=== PATIENT | female | born 1950 | race Caucasian/White ===

== ENCOUNTER 2017-08-27 15:42 | Inpatient (IN) | payer MEDICARE, BC ==
[2017-08-27] MEDS ORDERED: Morphine 4 MG/ML Syringe IVPUSH ONE (15:52)
[2017-08-27] MEDS ORDERED: Lactated Ringers 1,000 ML IV ONE (15:52)
[2017-08-27] MEDS ORDERED: Metoclopramide 10 MG/2 ML SDV IVPUSH ONE (15:52)
[2017-08-27] MEDS ORDERED: Metoclopramide 10 MG/2 ML SDV ONE (15:55)
[2017-08-27] MEDS ORDERED: Morphine 4 MG/ML Syringe ONE (15:56)
[2017-08-27] MEDS ORDERED: Ondansetron 4 MG/2 ML SDV ONE ×2 (16:26→17:19)
[2017-08-27] MEDS ORDERED: Morphine 2 MG/ML Syringe ONE (16:26)
[2017-08-27] MEDS ORDERED: Morphine 2 MG/ML Syringe IV ONE (16:26)
[2017-08-27] MEDS ORDERED: Ondansetron 4 MG/2 ML SDV IVPUSH ONE ×2 (16:26→17:25)
[2017-08-27] MEDS ORDERED: fentaNYL 100 MCG/2 ML SDV IVPUSH ONE (16:58)
[2017-08-27] MEDS ORDERED: fentaNYL 100 MCG/2 ML SDV ONE ×4 (16:59→21:00)
[2017-08-27] MEDS ORDERED: fentaNYL 100 MCG/2 ML SDV IV ONE ×3 (17:25→21:00)
[2017-08-27] MEDS: Lactated Ringers 1,000 ML IV SCH (19:25)
[2017-08-27] MEDS ORDERED: Lidocaine 2% Jelly 10 ML Urojet ONE ×2 (21:00→21:02)
[2017-08-27] MEDS ORDERED: Acetaminophen 650 MG Supp RECTAL PRN (21:00)
[2017-08-27] MEDS ORDERED: Ondansetron 4 MG/2 ML SDV IVPUSH PRN (21:00)
[2017-08-27] MEDS ORDERED: Naloxone 0.4 MG/ML SDV IV PRN (21:00)
[2017-08-27] MEDS ORDERED: cefTRIAXone 1 GM in Sodium Chloride 0.9% 50 ML IV ONE (21:00)
[2017-08-27] MEDS ORDERED: Bisacodyl 10 MG Supp RECTAL PRN (21:00)
[2017-08-27] MEDS ORDERED: Acetaminophen 325 MG Tab PO PRN (21:00)
[2017-08-27] MEDS ORDERED: Docusate Sodium 100 MG Cap PO PRN (21:00)
[2017-08-27] MEDS ORDERED: cefTRIAXone 1 GM Vial ONE (21:00)
[2017-08-27] MEDS ORDERED: LORazepam 2 MG/ML SDV IVPUSH PRN (21:00)
[2017-08-27] MEDS ORDERED: LORazepam 2 MG/ML SDV ONE (21:01)
[2017-08-27] MEDS ORDERED: Sodium Chloride 0.9% 50 ML ONE (21:01)
[2017-08-27] MEDS ORDERED: Pantoprazole 40 MG Vial ONE (23:03)
[2017-08-27] MEDS ORDERED: fentaNYL/Normal Saline 600 MCG/30 ML PCA Vial ONE (23:05)
[2017-08-27] MEDS: fentaNYL/Normal Saline 600 MCG/30 ML PCA Vial IV PRN (23:15)
[2017-08-27] MEDS: Pantoprazole 40 MG Vial IV SCH (23:15)
[2017-08-28] MEDS: Lactated Ringers 1,000 ML IV SCH (02:30)
[2017-08-28] MEDS ORDERED: LORazepam 2 MG/ML SDV ONE (03:27)
[2017-08-28] MEDS ORDERED: Levothyroxine 25 MCG Tab PO SCH (07:30)
--- NOTE | 2017-08-28 09:56 | PN ---
DATE OF SERVICE: 08/28/2017 SUBJECTIVE: Gladys is a 67-year-old female with a partial small bowel obstruction. She came into the emergency room yesterday, around 2100 hours. She had a sudden onset at 1300 hours of abdominal pain with nausea and vomiting. She was admitted to [address] [place] [address] with a small bowel obstruction with a consult with Surgery Team today. History of appendectomy, hysterectomy, and a hernia repair. Currently, Gladys states her pain is controlled. Vital signs have been stable. Temp max of 98.4. NG has put out 325 of a thick green drainage. Urine output 200. PAST MEDICAL HISTORY: Hypothyroidism and hypertension. MEDICATIONS: See EMR. ALLERGIES: HAS ALLERGIES TO ENVIRONMENTAL. REVIEW OF SYSTEMS: HEENT: Negative. NECK: Negative. HEART: No chest pain or shortness of breath. LUNGS: No cough. ABDOMEN: Generalized tenderness in periumbilical area, extending to the right and left mid- abdomen associated with nausea and vomiting, did have some dry heaves. : Negative. EXTREMITIES: Negative for any peripheral edema, joint pain or swelling. NEURO: No headaches, dizziness, or loss of coordination. Remainder of review of systems negative for any pertinent positives and negatives. OBJECTIVE: GENERAL: Gladys Gardner is a 67-year-old female. VITAL SIGNS: Height is 5 feet 5 inches. Weight 168 pounds. BMI is 28. TPR 98.4, 86, 18, and blood pressure 153/82. HEENT: Negative. NECK: Supple. HEART: Regular rate and rhythm. LUNGS: Clear. ABDOMEN: Slightly distended. Generalized tenderness. EXTREMITIES: SCDs are on. No peripheral edema. NEURO: Intact. PSYCHIATRIC: Mood and affect appropriate. ASSESSMENT: Partial small bowel obstruction. PLAN: 1. Schedule; have consent signed for exploratory laparotomy for release of partial small bowel obstruction with possible lysis of adhesions and possible bowel resection; general anesthesia; case to follow, 08/28/2017; Emmett Tsai MD. 2. Tap block. 3. Ketamine per protocol. 4. Cefoxitin 2 grams IV on-call to OR approximately noon. 5. Remain n.p.o. 6. We will evaluate p.r.n. or in a.m. Andree Fischer PA-C /[id number]
--- NOTE | 2017-08-28 09:56 | CR ---
Abdomen 2V AP Flat Upright INDICATION: follow up sbo COMPARISON: CT previous day FINDINGS: 3 views. NG tube in the proximal stomach. Dilated air-filled loops of small bowel with ass ociated air-fluid levels again noted as seen on CT, showing no significant interval change. Excreted contrast material in the urinary bladder.
--- NOTE | 2017-08-28 09:56 | CR ---
Abdomen 1V Upright INDICATION: CHECK NG PLACEMENT COMPARISON: None FINDINGS: Single portable view of the upper abdomen shows NG tube in the proximal stomach with proxi mal side port at the level of the GE junction.
[2017-08-28] MEDS ORDERED: Lidocaine 4% Top Soln 50 ML Bottle TOP ONE (10:30)
[2017-08-28] MEDS ORDERED: Succinylcholine 200 MG/10 ML MDV ONE (11:12)
[2017-08-28] MEDS ORDERED: Propofol 200 MG/20 ML SDV ONE (11:12)
[2017-08-28] MEDS ORDERED: Glycopyrrolate 0.2 MG/ML 5 ML MDV ONE (11:12)
[2017-08-28] MEDS ORDERED: Dexamethasone 4 MG/ML SDV ONE (11:12)
[2017-08-28] MEDS ORDERED: Ondansetron 4 MG/2 ML SDV ONE (11:12)
[2017-08-28] MEDS ORDERED: Rocuronium 50 MG/5 ML Vial ONE (11:12)
[2017-08-28] MEDS ORDERED: Midazolam 1 MG/ML 2 ML SDV ONE (11:12)
[2017-08-28] MEDS ORDERED: fentaNYL 250 MCG/5 ML SDV ONE (11:12)
[2017-08-28] MEDS ORDERED: Neostigmine Methylsulfate 1 MG/ML 5 ML Syringe ONE (11:12)
[2017-08-28] MEDS ORDERED: Meropenem 500 MG SDV ONE (11:53)
[2017-08-28] MEDS ORDERED: cefOXitin 2 GM in Sodium Chloride 0.9% 50 ML IV ONE (12:00)
[2017-08-28] MEDS ORDERED: Ketamine 500 MG/5 ML MDV IV SCH (12:00)
[2017-08-28] MEDS ORDERED: Ropivacaine 38 ML, Dexamethasone 8 MG, EPINEPHrine 0.4 MG, Sodium Chloride 0.9% 39.6 ML NERVRT SCH ×4 (12:00)
[2017-08-28] MEDS ORDERED: fentaNYL 100 MCG/2 ML SDV ONE (12:10)
[2017-08-28] MEDS ORDERED: Bupivacaine 0.5%/EPINEPHrine 1:200,000 50 ML MDV ONE (12:14)
[2017-08-28] MEDS ORDERED: Naloxone 0.4 MG/ML SDV ONE (12:33)
[2017-08-28] MEDS ORDERED: hydrOXYzine HCl 100 MG/2 ML SDV IM PRN (14:24)
[2017-08-28] MEDS: Dextrose 5%-Lactated Ringers 1,000 ML IV SCH ×2 (15:29→21:38)
[2017-08-28] MEDS: Acetaminophen 500 MG Tab PO SCH ×2 (15:30→21:17)
[2017-08-28] MEDS: cefOXitin 2 GM in Sodium Chloride 0.9% 50 ML IV SCH ×2 (16:24→23:48)
[2017-08-28] MEDS ORDERED: cefTRIAXone 1 GM in Sodium Chloride 0.9% 50 ML IV SCH (21:00)
[2017-08-28] MEDS: Docusate Sodium 100 MG Cap PO SCH (21:17)
[2017-08-28] MEDS: Pantoprazole 40 MG Vial IV SCH (21:17)
[2017-08-29] MEDS: Acetaminophen 500 MG Tab PO SCH ×4 (03:17→21:48)
[2017-08-29] MEDS: Dextrose 5%-Lactated Ringers 1,000 ML IV SCH ×2 (03:24→18:51)
[2017-08-29] MEDS: cefOXitin 2 GM in Sodium Chloride 0.9% 50 ML IV SCH ×2 (04:44→10:33)
[2017-08-29] MEDS: fentaNYL/Normal Saline 600 MCG/30 ML PCA Vial IV PRN (08:26)
[2017-08-29] MEDS: Docusate Sodium 100 MG Cap PO SCH ×2 (09:12→21:48)
--- NOTE | 2017-08-29 16:31 | PN ---
DATE OF SERVICE: 08/29/2017 SUBJECTIVE: Gladys is postop day one. She had a temp max of 100.4. Pain is controlled. Vital signs otherwise have been stable. REVIEW OF SYSTEMS: Remainder of review of systems is negative for any pertinent positives and negatives. OBJECTIVE: GENERAL: Gladys Gardner is a 67-year-old female. VITAL SIGNS: TPR is 98.2, 49, 18, blood pressure 120/65. HEENT: Negative. NECK: Supple. HEART: Regular rate and rhythm. LUNGS: Clear. ABDOMEN: Dressings dry and intact. Abdominal binder is on. EXTREMITIES: SCDs are on and there is no peripheral edema. ASSESSMENT: Exploratory laparotomy with lysis of adhesions, small bowel resection, and tube decompression of small bowel for adhesive small bowel obstruction with focal small bowel hemorrhage and marked distention of the proximal small bowel. Date of surgery, 08/28/2017, Emmett Tsai M.D. PLAN: 1. Schedule and have consent signed for delayed primary closure for 08/30/2017. TAP block and bolus of ketamine, n.p.o. after midnight. 2. Sips of clear liquids, ice chips. 3. Decrease IV to 125 mL per hour. 4. Leave Marquis in for an accurate intake and output. 5. Good pulmonary toilet. 6. We will evaluate p.r.n. or in a.m. Andree Fischer PA-C /[id number]
[2017-08-29] MEDS: Pantoprazole 40 MG Vial IV SCH (21:48)
[2017-08-30] MEDS: Dextrose 5%-Lactated Ringers 1,000 ML IV SCH ×3 (03:02→17:30)
[2017-08-30] MEDS: Acetaminophen 500 MG Tab PO SCH ×4 (03:03→22:00)
[2017-08-30] MEDS: fentaNYL/Normal Saline 600 MCG/30 ML PCA Vial IV PRN (06:28)
[2017-08-30] MEDS ORDERED: Bupivacaine 0.5% 50 ML MDV ONE (06:39)
[2017-08-30] MEDS ORDERED: Lidocaine 1% with EPINEPHrine 1:100,000 50 ML MDV ONE (06:39)
[2017-08-30] MEDS ORDERED: Meropenem 500 MG SDV ONE (06:39)
[2017-08-30] MEDS ORDERED: Propofol 200 MG/20 ML SDV ONE (06:57)
[2017-08-30] MEDS ORDERED: fentaNYL 100 MCG/2 ML SDV ONE (06:57)
[2017-08-30] MEDS ORDERED: Midazolam 1 MG/ML 2 ML SDV ONE (06:57)
[2017-08-30] MEDS ORDERED: Lidocaine 1% 2 ML ONE (06:58)
[2017-08-30] MEDS ORDERED: Ketamine 500 MG/5 ML MDV IV SCH (08:00)
[2017-08-30] MEDS ORDERED: Ropivacaine 38 ML, Dexamethasone 8 MG, EPINEPHrine 0.4 MG, Sodium Chloride 0.9% 39.6 ML NERVRT SCH ×4 (08:00)
--- NOTE | 2017-08-30 09:02 | PN ---
DATE OF SERVICE: 08/30/2017 SUBJECTIVE: Gladys is a 67-year-old female. She is postop day #2. Pain is controlled. Vital signs stable. She is n.p.o. for delayed primary closure. OBJECTIVE: GENERAL: Gladys Gardner is a 67-year-old female. VITAL SIGNS: TPR is 98.8, 67, 18, and blood pressure is 124/66. HEENT: Negative. NECK: Supple. HEART: Regular rate and rhythm. LUNGS: Clear. ABDOMEN: Dressings dry and intact. Abdominal binder is on. EXTREMITIES: Without peripheral edema. ASSESSMENT: Exploratory laparotomy with lysis of adhesions, small bowel resection, and tube decompression of small bowel for adhesive small bowel obstruction, focal small bowel hemorrhage, and marked distention of the proximal small bowel. Date of surgery 08/28/2017, Emmett Tsai MD. PLAN: Orders to be written after delayed primary closure. Andree Fischer PA-C /[id number]
[2017-08-30] MEDS: Docusate Sodium 100 MG Cap PO SCH ×2 (10:29→20:32)
[2017-08-30] MEDS: Levothyroxine 25 MCG Tab PO SCH (10:30)
[2017-08-30] MEDS: Bisacodyl 5 MG Tab PO SCH ×2 (10:30→20:32)
[2017-08-30] MEDS: Losartan 50 MG Tab PO SCH (10:30)
[2017-08-30] MEDS: Pantoprazole 40 MG Vial IV SCH (20:33)
[2017-08-30] MEDS ORDERED: Sodium Chloride 0.9% 10 ML Syringe FLUSH PRN (20:35)
[2017-08-30] MEDS ORDERED: Furosemide 20 MG/2 ML VIAL IVPUSH ONE (22:48)
[2017-08-30] MEDS ORDERED: Dextrose 5%-Lactated Ringers 1,000 ML IV SCH (23:00)
[2017-08-31] MEDS: Acetaminophen 500 MG Tab PO SCH ×2 (04:45→09:09)
[2017-08-31] MEDS: fentaNYL/Normal Saline 600 MCG/30 ML PCA Vial IV PRN (07:20)
[2017-08-31] MEDS: Levothyroxine 25 MCG Tab PO SCH (07:27)
[2017-08-31] MEDS: Bisacodyl 5 MG Tab PO SCH ×2 (08:54→21:49)
[2017-08-31] MEDS: Docusate Sodium 100 MG Cap PO SCH ×2 (08:54→21:49)
[2017-08-31] MEDS: Losartan 50 MG Tab PO SCH (08:55)
--- NOTE | 2017-08-31 11:46 | PN ---
DATE OF SERVICE: 08/31/2017 SUBJECTIVE: Gladys had a delayed primary closure yesterday. She has been up ambulating. Blood pressure is better. Vital signs have been stable. Pain has been controlled. REVIEW OF SYSTEMS: Remainder of review of systems is negative for any pertinent positives and negatives. OBJECTIVE: GENERAL: Gladys Gardner is a 67-year-old female. She is alert and orientated. VITAL SIGNS: TPR 99.1, 57, 18, blood pressure 144/76. HEENT: Negative. NECK: Supple. HEART: Regular rate and rhythm. LUNGS: Clear. ABDOMEN: Dressing dry and intact. Abdominal binder on. EXTREMITIES: Without peripheral edema. ASSESSMENT: 1. Exploratory laparotomy, lysis of adhesions, small bowel resection, and tube decompression of small bowel for adhesive small bowel obstruction, focal small bowel hemorrhage, and marked distention of the proximal small bowel. Date of surgery 08/28/2017. Surgeon, Emmett Tsai MD. 2. Delayed primary closure, 08/30/2017. PLAN: 1. Continue EXERCISE PHYSIOLOGIST and continuous pulse oximetry. 2. Full liquid diet. 3. She may shower. 4. Good pulmonary toilet. 5. We will evaluate p.r.n. or in the a.m. Andree Fischer PA-C /[id number]
[2017-08-31] MEDS: Acetaminophen/oxyCODONE 325-5 MG Tab PO PRN ×3 (14:00→22:22)
[2017-08-31] MEDS: Pantoprazole 40 MG Vial IV SCH ×2 (21:50→21:52)
[2017-09-01] MEDS: Acetaminophen/oxyCODONE 325-5 MG Tab PO PRN ×2 (03:45→08:13)
[2017-09-01] MEDS: Levothyroxine 25 MCG Tab PO SCH (07:03)
[2017-09-01 07:27] VITALS: BP 160/73
[2017-09-01] MEDS: Docusate Sodium 100 MG Cap PO SCH (08:14)
[2017-09-01] MEDS: Losartan 50 MG Tab PO SCH (08:14)
[2017-09-01] MEDS: Bisacodyl 5 MG Tab PO SCH (08:14)
--- NOTE | 2017-09-03 09:43 | DISCH ---
FINAL DIAGNOSES: 1. Adhesive small bowel obstruction with focal small bowel hemorrhage. 2. Marked distention of proximal small bowel. SECONDARY DIAGNOSES: 1. History of hypertension. 2. History of parathyroidectomy. 3. History of hyperlipidemia. OPERATIVE PROCEDURE: 1. On 08/28, exploratory laparotomy with lysis of adhesions: a. Small bowel resection. b. Tube decompression of small bowel. 2. On 08/30, delayed primary closure of abdominal incision. HOSPITAL COURSE: This is a 67-year-old presenting with a picture of small bowel obstruction. Previous surgeries included appendectomy and hysterectomy. On 08/28, the patient underwent exploratory laparotomy. She was noted have a closed loop obstruction within the mid small bowel related to an adhesion. This adhesion was lysed with bowel and was quite hemorrhagic and felt has to be resected. This was done without difficulty. She did have quite a bit of distention of the proximal small bowel and an enterotomy tube decompression was undertaken to facilitate earlier return of the GI function and then make that anastomosis somewhat safer. The design of the original incision wound was felt to be at high risk for wound infection. Given this, the wound was packed open and delayed primary closure undertaken on 08/30. Clinically, she has done well. At this point, she is moving her bowels, eating regular diet, and tolerating taking Percocet for pain. She will be sent home with home medications plus Percocet 5/325 one to two tabs q.4 hours p.r.n. pain #50 and Colace 100 mg p.o. b.i.d. while on pain medications. Follow up will be with Andree Fischer at [facility] on Sunday of 09/07/2017.
--- NOTE | 2017-09-03 09:52 | OR ---
DATE OF PROCEDURE: 08/30/2017 PREOPERATIVE DIAGNOSIS: Open abdominal incision. POSTOPERATIVE DIAGNOSIS: Open abdominal incision. PROCEDURE: Delayed primary closure of open abdominal incision. ANESTHESIA: Local plus IV sedation. INDICATION FOR PROCEDURE: The patient is status post open laparotomy for a complicated small-bowel resection there was some adherent damage of the subcutaneous tissue. Given this, the patient felt to be high risk for wound infection. Primary closure was undertaken, and the incision was packed open for a planned delayed primary closure at this time. Potential risks including bleeding and infection were reviewed, and the patient wishes to proceed. DETAILS OF PROCEDURE: The patient was taken to operating room and placed in supine position. IV sedation was administered, after which, the portion of the dressing was taken down in a lateral transverse abdominus plane box that we then placed in a standard solution under direct ultrasound guidance. Following this, remainder of dressing was taken down and the incision was inspected and found to be clean. The incision was then prepped and draped, irrigated with antibiotic-containing saline solution. Midline incision was then closed with 2 layers of 3-0 and 4-0 Vicryl stitch deep and then kayla for the skin. Dressing applied. The patient was taken to the recovery room in satisfactory condition. Emmett Tsai MD /[id number]
--- NOTE | 2017-09-03 09:52 | OR ---
DATE OF PROCEDURE: 08/28/2017 ADDENDUM: DETAILS OF PROCEDURE: Physician marketing assistant Andree Fischer PA-C, played an essential role in assisting in this case, helping to position the patient, retract structures as needed, as well as suturing and cutting sutures when indicated. Her presence improved patient's safety and decreased operative time. Emmett Tsai MD /[id number]
--- NOTE | 2017-09-03 09:58 | OR ---
DATE OF PROCEDURE: 08/28/2017 PREOPERATIVE DIAGNOSIS: Small bowel obstruction. POSTOPERATIVE DIAGNOSES: 1. Adhesive small bowel obstruction with focal small bowel hemorrhage. 2. Marked distention of proximal small bowel. OPERATIVE PROCEDURES: Exploratory laparotomy with lysis of adhesions; 1. Small bowel resection (31491). 2. Enterotomy for tube decompression of small bowel (65198). ANESTHESIA: General. MARKET ASSET PROTECTION MANAGER: Andree Fischer PA-C. INDICATIONS FOR PROCEDURE: This is a 67-year-old presenting with a picture of small bowel obstruction. She was fairly uncomfortable this morning and given this, we elected not to attempt any operative phase of treatment. Plan is to proceed with exploratory laparotomy given the degree of bowel distention and potential risks including bleeding, infection, injury to the underlying viscera, leaks from any GI tract closures as such as well as possibility of cardiopulmonary, septic, hemorrhagic complications leading to were all discussed, and the patient wishes to proceed. DETAILS OF PROCEDURE: The patient was taken to the operating room and placed in a supine position. After general endotracheal anesthesia was induced, bilateral subcostal transversus abdominis plane blocks were placed using continuous ultrasound guidance and injection of the standard solution. Following this, a Marquis catheter was inserted and the abdomen prepped and draped. An upper midline incision was made and carried down through the skin and subcutaneous tissue. In the abdominal cavity some serous fluid was encountered. The small bowel was noted to be markedly distended. This was then traced down to a point where there was a closed loop obstruction with loop of bowel having passed underneath the area of adhesions between the appendix epiploica and the underlying mesentery of the sigmoid colon. This adhesion was then divided. The bowel was then mobilized upward and noted to be quite hemorrhagic over several centimeter segments. This was felt best be resected. The 2 ends of the bowel were divided just beyond where the bowel transitioned from being hemorrhagic to normal. This was done with RUMA stapler and the underlying mesentery likewise divided with the RUMA stapler and the specimen delivered from the field. Proximal small bowel was quite distended. Given this, a small enterotomy proximal divided small bowel was made and a [place] sump tube passed and a large volume of fluid and air were then removed to decompress the proximal small bowel making the anastomosis somewhat safer after brief return of GI tract function likely sooner. This was then removed at this point. The [id number] enteroenterostomy was then accomplished with 60 mm RUMA stapler and the common opening was then closed transversely with the same stapler as well and venous anastomosed. Mesenteric defect was approximated with 3- 0 Vicryl stitch. At this point, the abdomen was irrigated with antibiotic-containing saline solution. No drains were felt to be necessary. The midline fascia was approximated with #2 Vicryl stitch. The skin and subcutaneous tissue were felt to be high risk for wound infection if primary closure was undertaken. Given this, the wound was packed open for a planned delayed primary closure in 48 hours. The patient was taken to the recovery room in satisfactory condition. Emmett Tsai MD /[id number]
== END 2017-09-01 10:05 | disposition home or self-care (01) | DRG 336 ==
LOC: JP.ED 15:42 → JP.2SS 21:00
PROVIDERS: ADMIT Internal Medicine; ATTEND Internal Medicine
PROC: 0DB80ZX Excision of Small Intestine, Open Approach, Diagnostic (ICD-10-PCS; principal; 2017-08-28)
PROC: 0DNJ0ZZ Release Appendix, Open Approach (ICD-10-PCS; 2017-08-28)
PROC: 0D980ZZ Drainage of Small Intestine, Open Approach (ICD-10-PCS; 2017-08-28)
PROC: 0DNN0ZZ Release Sigmoid Colon, Open Approach (ICD-10-PCS; 2017-08-28)
PROC: 3E0T3BZ Introduction of Anesthetic Agent into Peripheral Nerves and Plexi, Percutaneous Approach (ICD-10-PCS; 2017-08-28)
PROC: 0WQF0ZZ Repair Abdominal Wall, Open Approach (ICD-10-PCS; 2017-08-30)
PROC: 3E0T3BZ Introduction of Anesthetic Agent into Peripheral Nerves and Plexi, Percutaneous Approach (ICD-10-PCS; 2017-08-30)
DX: K56.609 Unspecified intestinal obstruction, unspecified as to partial versus complete obstruction (principal); R10.9 Unspecified abdominal pain; R11.2 Nausea with vomiting, unspecified; K56.51 Intestinal adhesions [bands], with partial obstruction; K92.2 Gastrointestinal hemorrhage, unspecified; K63.89 Other specified diseases of intestine; Z48.1 Encounter for planned postprocedural wound closure; I10 Essential (primary) hypertension; E03.9 Hypothyroidism, unspecified
CPT/HCPCS: 36415; 74177; 76705; 80053; 81001; 83690; 85027; J2270 ×2; J2405 ×2; J2765; J3010 ×3; J7120 ×2; 74018; 74018-26; 74019; 74019-26; 80048; 88307; 94762; A9270-GY; C9113; J0171; J0330; J0694; J0696; J1100; J1940; J2001; J2060; J2185; J2250; J2310; J2704; J2710; J2795; J7042; J7050